=== PATIENT | male | born 1995 | race Two or more races ===

== ENCOUNTER 2017-08-03 05:35 | Inpatient (IN) | payer OTHER ==
[2017-08-03] VITALS (14 sets, daily range): BP systolic 117–138; BP diastolic 51–87
[~2017-08-03] VITALS: Ht 167.6 cm; Wt 65.8 kg
[2017-08-03] MEDS ORDERED: LR 1000ml 1,000 ML IVLG SCH (06:22)
[2017-08-03] MEDS ORDERED: Atropine Inj 1mg/10ml Syr IV PRN (06:30)
[2017-08-03] MEDS ORDERED: DiphenhydrAMINE 50mg/ml Inj IVP PRN (06:30)
[2017-08-03] MEDS ORDERED: Hydromorphone 0.5mg/0.5ml inj IVP PRN (06:30)
[2017-08-03] MEDS ORDERED: Acetaminophen (Non formulary) 100 ML IV ONE (06:30)
[2017-08-03] MEDS ORDERED: fentaNYL 100 mcg/2 mL IV PRN (06:30)
[2017-08-03] MEDS ORDERED: Ketorolac 30mg Inj IV PRN (06:30)
[2017-08-03] MEDS ORDERED: HYDROcodone/Acetamin 7.5/325 tab ORAL PRN (06:30)
[2017-08-03] MEDS ORDERED: LORazepam Inj 2mg/ml 1ml IV PRN (06:30)
[2017-08-03] MEDS ORDERED: Norco 5mg/325mg tab ORAL PRN (06:30)
[2017-08-03] MEDS ORDERED: Thrombin 5000 units TOPIC ONE (06:30)
[2017-08-03] MEDS ORDERED: Surgicel 4in x 8in TOPIC ONE (06:30)
[2017-08-03] MEDS ORDERED: Labetalol 5mg/ml 20ml vial IV PRN (06:30)
[2017-08-03] MEDS ORDERED: Midazolam 2mg/2ml Inj IVP PRN (06:30)
[2017-08-03] MEDS ORDERED: oxyCODONE HCL/Acetaminophen 5/325mg ORAL PRN (06:30)
[2017-08-03] MEDS ORDERED: Ketorolac 60mg Inj IV PRN (06:30)
[2017-08-03] MEDS ORDERED: Vancomycin 1gm inj IVPB ONE (06:31)
[2017-08-03] MEDS ORDERED: Lidocaine 1% Plain 30 ml INJ ONE ×2 (06:31→07:00)
[2017-08-03] MEDS ORDERED: Ropivacaine 5mg/ml Vial 30ml INJ ONE (06:31)
[2017-08-03] MEDS ORDERED: Lidocaine 1% 10mg/ml/EPI 0.01mg/ml 50ml INJ ONE (06:32)
[2017-08-03] MEDS ORDERED: Bacitracin 50000 Units Vial ONE (06:32)
[2017-08-03] MEDS ORDERED: HYDROmorphone 1mg/ml Carpuject SUBQ PRN (06:45)
[2017-08-03] MEDS ORDERED: Chloraseptic Spray 20mL Bottle ORAL PRN (06:45)
[2017-08-03] MEDS ORDERED: oxyCODONE 5mg IR tab ORAL PRN (06:45)
--- NOTE | 2017-08-03 06:58 | Anethesia Preoperative Eval ---
Anesthesia Pre-op PMH/ROS General Date of Evaluation: Aug 03, 2017 Time of Evaluation: 07:11 Anesthesiologist: Leyda ASA Score: ASA 1 Mallampati Score Class I : Soft palate, uvula, fauces, pillars visible Class II: Soft palate, uvula, fauces visible Class III: Soft palate, base of uvula visible Class IV: Only hard plate visible Mallampati Classification: Class I Surgeon: Howard Diagnosis: Back Pain Surgical Procedure: ALIF L5-S1, PSF L5-S1 Anesthesia History: none Family History: no anesthesia problems Allergies: Coded Allergies: No Known Allergies (Unverified , 08/02/17) Medications: see eMAR Past Medical History Gastrointestinal/Genitourinary: Reports: other - Hemmorhoids Anesthesia Pre-op Phys. Exam Physician Exam Last Vital Signs Date Time Temp Pulse Resp B/P (MAP) Pulse Ox O2 Delivery O2 Flow Rate FiO2 08/03/17 06:45 98.7 61 20 123/52 97 Room Air Constitutional: NAD Neurologic: CN 2-12 intact Cardiovascular: RRR Respiratory: CTA Gastrointestinal: S/NT/ND Airway Exam Mallampati Score: Class I MO: full ROM: full Teeth: intact Anesthesia Pre-op A/P Risk Assessment & Plan Assessment: ASA 1 Plan: GA, BIS, GlideScope Status Change Before Surgery: No Pre-Antibiotics Dru Grams Ancef IV Given Within 1 Hr of Incision: Yes Time Given: 07:31 Ezequiel Crabtree MD Aug 03, 2017 06:58
--- NOTE | 2017-08-03 06:59 | Immediate Post-Op Evaluation ---
Immediate Post-Op Evalulation Immediate Post-Op Evalulation Procedure: ALIF L5-S1, PSF L5-S1 Date of Evaluation: Aug 03, 2017 Time of Evaluation: 11:57 IV Fluids: 1500 LR Blood Products: 0 Estimated Blood Loss: 75 Urinary Output: 600 Blood Pressure Systolic: 117 Blood Pressure Diastolic: 71 Pulse Rate: 83 Respiratory Rate: 16 O2 Sat by Pulse Oximetry: 100 Temperature (Fahrenheit): 97.2 Pain Score (1-10): 3 Nausea: No Vomiting: No Complications 0 Patient Status: awake, reacts, patent, extubated, none Hydration Status: adequate Dru Grams Ancef IV Given Within 1 Hr of Incision: Yes Time Given: 07:31 Ezequiel Crabtree MD Aug 03, 2017 06:59
[2017-08-03] MEDS ORDERED: Glycopyrrolate 0.2mg/ml 1ml Vial ONE (07:00)
[2017-08-03] MEDS ORDERED: Zemuron 50mg/5ml Inj IV ONE (07:00)
[2017-08-03] MEDS ORDERED: HYDROcodone/Acetamin 10/325 tab ORAL PRN (07:00)
[2017-08-03] MEDS ORDERED: Lidocaine 1% MPF 10mg/ml 5ml ONE (07:00)
[2017-08-03] MEDS ORDERED: LR 1000ml ONE (07:00)
[2017-08-03] MEDS ORDERED: ceFAZolin sod 1 GM in D5W 55 ML IVPB ONE (07:00)
[2017-08-03] MEDS ORDERED: fentaNYL 100 mcg/2 mL IV ONE (07:00)
[2017-08-03] MEDS ORDERED: NS Irrig 1000ml ONE (07:00)
[2017-08-03] MEDS ORDERED: Sterile Water Irrig 1000ml IRRIG ONE (07:00)
[2017-08-03] MEDS ORDERED: Dexamethasone 20mg/5ml IVP ONE (07:00)
[2017-08-03] MEDS ORDERED: Propofol 1,000mg/ 100ml btl IV ONE (07:00)
[2017-08-03] MEDS ORDERED: Labetalol 5mg/ml 20ml vial IV ONE (07:00)
--- NOTE | 2017-08-03 07:10 | Pre-Procedure Note/Attestation ---
Pre-Procedure Note/Attestation Complete Prior to Procedure Planned Procedure: not applicable Procedure Narrative: L5-S1 ALIF, posterior pedicle screw instrumentation Indications for Procedure Pre-Operative Diagnosis: Post Trauma discogenic back pain Attestation I attest that I discussed the nature of the procedure; its benefits; risks and complications; and alternatives (and the risks and benefits of such alternatives ), prior to the procedure, with the patient (or the patient's legal product support representative). I attest that, if there was a reasonable possibility of needing a blood transfusion, the patient (or the patient's legal product support representative) was given the [facility] standardized written summary, pursuant to the [place] Blood Safety Act ([place] Health and Safety Code # 1645, as amended). I attest that I re-evaluated the patient just prior to the surgery and that there has been no change in the patient's H&P, except as documented below: CICI HARMAN Aug 03, 2017 07:10
[2017-08-03] MEDS ORDERED: Heparin 5000 units/ml inj ONE (07:21)
[2017-08-03] MEDS ORDERED: Rate Change PCA 1 Each MISC PRN (09:00)
[2017-08-03] MEDS ORDERED: Docusate 100mg/10ml Liq NG SCH (09:00)
--- NOTE | 2017-08-03 11:19 | Brief Operative Note ---
Immediate Post Operative Note Operative Note Pre-op Diagnosis: Post Trauma discogenic back pain Procedure: ALIF L5-S1, Internal Fixation, Correction deformity Fusion BMP Posterior Pedicle Screw L5, S1 SSEP Xray Magnification Local Post-op Diagnosis: same as pre-op Findings: consistent w/pre-op dx studies Surgeon: Howard Akers anteriorHoward [place] Supervisor: Dane baez Anesthesiologist: Leyda SINGH Anesthesia: general Specimen: none Complications: none Condition: stable Fluids: anesthesia Estimated Blood Loss: minimal Implant(s) used?: Yes CICI HARMAN Aug 03, 2017 11:19
[2017-08-03] MEDS: PCA HYDROmorphone 1mg/ml 30 ML IV PRN (12:20)
[2017-08-03] MEDS: D5 1/2NS 1,000 ML IV SCH ×2 (14:18→22:05)
[2017-08-03] MEDS: Dronabinol 2.5mg Cap ORAL SCH ×2 (14:18→22:04)
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
--- NOTE | 2017-08-03 15:33 | Operative Note - Dictated ---
DATE OF OPERATION: 08/03/2017 VASCULAR SURGEON: Harish Akers M.D. SPINE SURGEON: Byron Lawrence M.D. PREOPERATIVE DIAGNOSIS: Degenerative disc disease. POSTOPERATIVE DIAGNOSIS: Degenerative disc disease. PROCEDURE: Anterior retroperitoneal exposure of L5-S1 vertebral interspace. INDICATIONS: The patient is a very pleasant gentleman, who is seen in my office prior to surgery. He was scheduled for anterior spine surgery at L5-S1. There is no prior anterior abdominal surgery, no history of deep venous thrombosis, and no history of bleeding complications. He was carefully discussed the risks of vascular surgery, possibility of vascular injury, possible need for blood transfusion, and deep venous thrombosis were also discussed. We also had discussion with a very low rate of retrograde ejaculation after spine surgery. He understands these risks and does wish to proceed. DESCRIPTION OF FINDINGS: A low vertical incision was used. A left retroperitoneal approach was used. There was no peritoneal or ureteral violation. There is no vascular injury. Exposure of L5-S1 was obtained below the iliac bifurcation and the Omni retractor was used for retraction. Fluoroscopy was also used to confirm the level prior to instrumentation. DESCRIPTION OF PROCEDURE: The patient was taken to the operating room. General anesthesia was used. IV antibiotics were given. The patient's abdomen was prepped and draped. Appropriate time-out for procedure taken. A vertical midline incision made infraumbilically. The anterior fascia was incised longitudinally midline. A plane identified posterior to the left rectus abdominis developed posterolaterally to the patient's left. The retroperitoneal space entered below the arcuate line. The peritoneum and ureter are mobilized towards the patient's right exposing the left common iliac artery and vein. The dissection was carried to the undersurface of the left common iliac vein and middle sacral artery and vein were ligated with vascular clips and divided. This allowed us to retract the left iliac vessels superiorly and laterally exposing the anterior surface of L5-S1. There is very minimal use of electrocautery to decrease the risk of underlying nerve injury. At this time, fluoroscopy was used to confirm the appropriate level and instrumentation was performed at L5-S1 as dictated separately. On completion, the retractor was gently removed. The peritoneum and ureter were intact. The iliac vessels were intact. The anterior fascia was then closed with #1 PDS in a running fashion. The skin and subcutaneous tissue were closed with 3-0 Vicryl and 4-0 Monocryl in a running subcuticular closure technique. Blood loss was less than 50 mL. Complications none. Harish Akers M.D. DR: RICO JOB#: [id number] CC:
[2017-08-03] MEDS: ceFAZolin sod 1 GM in D5W 55 ML IV SCH ×2 (15:44→22:52)
[2017-08-03] MEDS ORDERED: PCA Education Pamphlet MISC ONE (16:00)
--- NOTE | 2017-08-03 18:42 | Cardiology Progress Note ---
Assessment/Plan Assessment/Plan discogenic pain post traumatic hs of recetn vasovaglsycnoep relate to pehlbotomy ivf dvt ppx pneumoatic stocking observe for bowel fucntion recovery once abl eot ambulate adn have bm an able to eat will go home pain managemtn per pain service orthosttic vital fall precaution initially [id number] Objective Last 24 Hour Vital Signs Date Time Temp Pulse Resp B/P (MAP) Pulse Ox O2 Delivery O2 Flow Rate FiO2 08/03/17 16:00 20 08/03/17 14:35 98.1 87 20 124/63 97 08/03/17 14:00 20 08/03/17 13:46 18 08/03/17 13:45 97.8 89 20 129/73 98 08/03/17 13:30 20 08/03/17 13:30 20 08/03/17 13:00 16 08/03/17 13:00 97.6 08/03/17 13:00 97.6 08/03/17 13:00 97.6 81 16 124/67 100 Nasal Cannula 3.0 08/03/17 12:50 74 15 123/69 100 Nasal Cannula 3.0 08/03/17 12:45 17 08/03/17 12:40 92 18 124/65 100 Nasal Cannula 3.0 08/03/17 12:30 74 16 119/66 100 Nasal Cannula 3.0 08/03/17 12:30 16 08/03/17 12:20 86 20 129/68 100 Nasal Cannula 3.0 08/03/17 12:20 18 08/03/17 12:10 86 21 127/76 100 Nasal Cannula 3.0 08/03/17 12:00 88 19 138/87 100 Simple Mask 6.0 08/03/17 11:55 84 20 131/78 100 Simple Mask 6.0 08/03/17 11:50 78 18 120/75 99 Simple Mask 6.0 08/03/17 11:48 83 16 100 08/03/17 11:46 97.2 83 19 117/71 99 Simple Mask 6.0 08/03/17 06:45 98.7 61 20 123/52 97 Room Air GRICELDA AL Aug 03, 2017 18:42
--- NOTE | 2017-08-03 18:43 | 48 Hour Post Anesthesia Eval ---
Post Anesthesia Evaluation Procedure: ALIF L5-S1, PSF L5-S1 Date of Evaluation: Aug 05, 2017 Time of Evaluation: 09:00 Blood Pressure Systolic: 120 0: 80 Pulse Rate: 56 Respiratory Rate: 18 O2 Sat by Pulse Oximetry: 99 Airway: patent Nausea: No Vomiting: No Hydration Status: adequate Mental Status/LOC: patient returned to baseline Post-Anesthesia Complications: none Follow-up care needed: patient intructions given Bassam Christopher M.D. Aug 03, 2017 18:43
[2017-08-03] MEDS: PCA shift volume MISC SCH (19:00)
[2017-08-03] MEDS: Docusate 100mg cap ORAL SCH (19:09)
--- NOTE | 2017-08-03 21:15 | Operative Note - Dictated ---
DATE OF OPERATION: 08/03/2017 ADMITTING/PREOPERATIVE DIAGNOSIS: Posttraumatic discogenic back pain, L5-S1. POSTOPERATIVE DIAGNOSIS: Posttraumatic discogenic back pain, L5-S1. OPERATIVE PROCEDURE: Anterior interbody reconstruction, fusion correction deformity with internal fixation L5-S1, placement bone morphogenic protein fusion. Intraoperative fluoroscopy interpreted by surgeons. SSEP monitoring. High-powered dissection. Anterior fusion. CO-SURGEON: Dr. Akers, Vascular Surgery. Dr. Lawrence, as assist to vascular surgery. Please see separate dictation, Dr. Akers, for approach and closure for anterior surgery. Posterior surgery: Assist, SAEED Chase. SURGEON: Byron Lawrence, PhD, M.D. PROCEDURE: Bilateral pedicle screw instrumentation, L5-S1. Intraoperative fluoroscopy interpreted by surgeons. SSEP monitoring. High-powered microscopic magnification dissection. Local anesthetic applied by surgeon. ANESTHESIA: General with intubation, Dr. Crabtree. ESTIMATED BLOOD LOSS: 50 mL. COMPLICATIONS: None. POSTOPERATIVE CONDITION: Good/stable. PROCEDURE IN DETAIL: The patient was brought to the operating room and laid in the supine position. General anesthesia intubation was induced. Intravenous antibiotics, intravenous Decadron were administered 30 minutes prior to incision time. Anterior abdomen was sterilely prepped draped free in usual sterile fashion. A longitudinal anterior incision was sharply made through dermis and epidermis. Please see separate dictation, Dr. Akers, for approach exposure and closure. Needle was placed at the midline between the L5 and S1 vertebral bodies in a cross-table and AP radiographs were obtained under sterile conditions, interpreted by surgeons for decision of level and midline placement L5-S1. Level was marked. Needle removed. Annulotomy was performed under high-power magnification followed with diskectomy through the posterior longitudinal ligament. Endplate denuding of cartilaginous end caps to bleeding bone was accomplished. Interpositional grafting with appropriate lordotic titanium/peek cage was obtained with internal fixation with the cage containing bone morphogenic protein placed for fusion. Alignment excellent. Fluoroscopic guidance determination/confirmation. After full closure and placement of sterile bandage, the patient was carefully turned to the prone position onto the new operating table. All instruments used on the anterior approach were removed. New operating table brought in. All new instruments opened. Lumbodorsal spine was sterilely prepped and draped free in usual sterile fashion. A longitudinal midline incision was sharply placed at the dermis and epidermis over the appropriate intervals. Electrocautery dissection was carried through the subcutaneous tissue to the level of the lumbodorsal fascia, was incised right and left of midline over the respective intervals. Identification was undertaken of the pars interarticularis and pedicle positions with fluoroscopic guidance with markers in place. Sequential probing of the pedicles were undertaken followed with depth determination of fluoroscopic guidance of screw length tapping followed with physical determination of cortical wall integrity. SSEP monitoring stable. Screws placed bilateral L5 and bilateral S1. Prep under operative procedure, bilateral posterior facet fusions L5-S1. Facet back down below facet articulations were excised, Midas Sunday bur dissection with allograft fusion. Pedicle screw instrumentation was connected after electrical stimulation to 5 milliamps negative at bilateral L5 and bilateral S1. Appropriate etienne length clamped into position and locked. Irrigation with antibiotic-containing saline. A 1 gram of vancomycin powder applied deep to the lumbodorsal fascia. Lumbodorsal fascia reapproximated with 0 Vicryl suture material. Subcutaneous tissue reapproximated with inverted interrupted sutures. Dermis and epidermis reapproximated with running subcuticular suture. Surgical strips applied followed with Dermabond glue. After Dermabond glue had dried, a sterile bandage was applied and maintained in place with tape. Of note, is local anesthetic 1% lidocaine was applied in the subcutaneous interval bilateral lateral aspects of the wound as local anesthetic. The patient was carefully turned from the prone to supine position on the transport bed where he was awakened and extubated in the operating room, and transported to postoperative recovery in good stable condition. Byron Lawrence M.D. DR: SHANTE JOB#: [id number] CC:
[2017-08-04] VITALS: BP 115/54
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
[2017-08-04 04:00] VITALS: BP 114/53
[2017-08-04] MEDS: Dronabinol 2.5mg Cap ORAL SCH ×3 (05:51→21:24)
[2017-08-04] MEDS: D5 1/2NS 1,000 ML IV SCH ×3 (05:52→22:23)
[2017-08-04] MEDS: ceFAZolin sod 1 GM in D5W 55 ML IV SCH (06:19)
[2017-08-04] MEDS: PCA shift volume MISC SCH ×2 (07:17→19:00)
[2017-08-04 08:16] VITALS: BP 112/61
[2017-08-04] MEDS: Docusate 100mg cap ORAL SCH ×2 (08:16→18:00)
--- NOTE | 2017-08-04 09:57 | Diagnostic Imaging Report ---
Indication: Reason For Exam: PAIN Technique: XRAY [employer] study performed by Dr. Lawrence. 3 images provided. Fluoroscopy dose: Fluoroscopy time 33.3 seconds. Dose: [id number] mGym2 Comparison: None. Findings: Intraoperative limited lateral views of the lumbar spine demonstrate localization of what appears to be the L5-S1 disc. There is subsequent placement of hardware in the L5-S1 disc as well as pedicle screws and posterior fixation bars and L5 and S1. Impression: Surgical fusion of L5 and S1.
[2017-08-04 12:00] VITALS: BP 136/68
[2017-08-04] MEDS: PCA HYDROmorphone 1mg/ml 30 ML IV PRN (15:15)
[2017-08-04 16:00] VITALS: BP 137/64
[2017-08-04] MEDS ORDERED: D5 1/2NS 1000ml IV ONE (16:51)
--- NOTE | 2017-08-04 17:45 | Progress Note ---
DATE: 08/04/2017 ACUTE PAIN MANAGEMENT PHYSICIAN PROGRESS NOTE MEDICATIONS: Medication administration record reviewed. Medications include Fioricet, Mylanta, Soma, Catapres, IV fluids, Benadryl, Colace, Marinol, Marydel, Dilaudid STATION REPAIRER, subcutaneous Dilaudid, Narcan, Zofran, oxycodone, Protonix, and Chloraseptic. LABORATORY STUDIES: No interval laboratory studies. OBJECTIVE: VITAL SIGNS: Pain level 5/10 on the visual analog pain scale. Afebrile, pulse 60, respirations 20, blood pressure 112/61, and oxygen saturation 98% on room air. I spent over 60 minutes in consultation today. I saw the patient at bedside with the patient's girlfriend. I discussed the case with the nurse RN, 00:49_ and the physical therapist. The patient is neurologically intact, moving all extremities x4. A 5/5 dorsiflexion, 5/5 plantar flexion of bilateral lower extremity. The patient denies any shortness of breath or chest pain. After his anterior lumbar interbody fusion procedure, the patient is not passing positive flatus at this time. He does have stomach rumbling, but no burping either. The patient will continue on ice chips and medications only by mouth until we see better evidence of moravian of bowel function, noted with positive flatus. The Arevalo catheter remains in place. I demonstrated proper usage of incentive spirometer at the bedside to encourage good pulmonary toilet. I streamlined the patient's medication list to reduce the risk of medication administration errors. The patient is using his Dilaudid STATION REPAIRER with good efficacy. The scheduled q.8 h. dosing of Marinol was working well for baseline analgesia without any adverse side effects. The patient denies any headache symptoms. I did recommend the patient to consider trialing the oral analgesics including Marydel and oxycodone to help transition him off the STATION REPAIRER unit, which I would like to stop tomorrow. I will continue the patient on Protonix for GI ulcer prophylaxis. Soma and Fioricet will remain available for spasm and headache complaints respectively p.r.n. Overall, the patient is progressing on-schedule with his recovery after his extensive lumbar spine fusion surgery. We will see how the patient progresses with physical therapy as well as see how the patient recovers with bowel function. I did recommend continued use of incentive spirometer for good pulmonary toilet. The patient will continue with sequential compression pneumatic devices on bilateral lower extremity calves for DVT prophylaxis. Bassam Elizalde M.D. DR: TOM JOB#: [id number] CC:
--- NOTE | 2017-08-04 19:49 | Cardiology Progress Note ---
Assessment/Plan Problem List: (1) Fusion of spine of lumbar region Status: stable, unchanged Status Narrative Hemodynamically stable, s/p LS spine surgery , post op d1. He had syncope preop in the setting of blood draw - likely vasovagal. Assessment/Plan Follow orthostatic VS. IV fluids Analgesics, post op management per Dr. Lawrence Subjective ROS Limited/Unobtainable: No Subjective Mr. Bui c/o back/abd pain. No further syncope. No dizziness Events noted Objective Last 24 Hour Vital Signs Date Time Temp Pulse Resp B/P (MAP) Pulse Ox O2 Delivery O2 Flow Rate FiO2 08/04/17 16:00 18 08/04/17 16:00 98.7 60 20 137/64 100 Room Air 08/04/17 12:00 62 08/04/17 12:00 97.4 62 20 136/68 97 Room Air 08/04/17 12:00 19 08/04/17 08:16 98.4 60 20 112/61 98 08/04/17 08:00 20 08/04/17 04:00 58 55 08/04/17 04:00 20 08/04/17 04:00 98.2 58 20 114/53 98 08/04/17 00:00 98.2 67 20 115/54 98 08/04/17 00:00 20 08/03/17 20:00 98.5 72 20 120/51 96 General Appearance: WD/WN, alert, mild distress EENT: PERRL/EOMI Neck: supple, no JVD Rhythm: NSR Cardiovascular: normal rate, regular rhythm, no gallop/murmur Respiratory/Chest: lungs clear, other - clear anteriorly Abdomen: soft, absent bowel sounds, other - anterior incision clean, covered w / dry dsg Extremities: non-tender, no swelling Intake and Output 08/03/17 08/04/17 19:00 07:00 Intake Total 1950 ml 1055 ml Output Total 3000 ml 1400 ml Balance -1050 ml -345 ml Intake IV Total 1950 ml 1055 ml Output Urine Total 2250 ml 1400 ml Estimated Blood Loss 750 ml Microbiology Date/Time Source Procedure Growth Status 08/03/17 05:30 Nasal Nares MRSA Culture - Final NO METHICILLIN RESISTANT STAPH AUREUS... Complete EAMON SORIA Aug 04, 2017 19:49
[2017-08-04 20:25] VITALS: BP 121/72
[2017-08-05] VITALS (8 sets, daily range): BP systolic 102–132; BP diastolic 59–72
[2017-08-05] MEDS: Dronabinol 2.5mg Cap ORAL SCH ×3 (05:13→21:00)
[2017-08-05] MEDS: D5 1/2NS 1,000 ML IV SCH ×2 (06:28→07:53)
[2017-08-05] MEDS ORDERED: Hydromorphone 0.5mg/0.5ml inj IVP PRN (07:30)
[2017-08-05] MEDS: Docusate 100mg cap ORAL SCH ×2 (08:27→17:15)
--- NOTE | 2017-08-05 14:48 | Cardiology Progress Note ---
Assessment/Plan Problem List: (1) Fusion of spine of lumbar region Status: doing well, stable Status Narrative Hemodynamically stable, s/p LS spine surgery , post op d2. He had syncope preop in the setting of blood draw - likely vasovagal. He has not had further symptoms. Abd pain/ incisional pain improving, and he is now on oral analgesics Assessment/Plan Follow orthostatic VS. Po fluids/ advance diet. Analgesics, post op management per Dr. Lawrence Will check labs in am. ? dc home in next 1-2 d if remains stable. Subjective ROS Limited/Unobtainable: No Subjective Mr. Bui has no c/o. Incisional pain has improved. Objective Last 24 Hour Vital Signs Date Time Temp Pulse Resp B/P (MAP) Pulse Ox O2 Delivery O2 Flow Rate FiO2 08/05/17 12:11 99.2 60 20 127/67 98 Room Air 08/05/17 10:41 98.8 08/05/17 08:00 98.8 63 18 132/66 94 Room Air 08/05/17 06:34 83 102/68 08/05/17 06:32 69 122/69 08/05/17 06:30 64 119/72 08/05/17 04:00 18 08/05/17 04:00 99.8 73 17 109/59 98 08/05/17 00:00 17 08/04/17 20:30 18 08/04/17 20:25 99.6 73 18 121/72 98 08/04/17 16:00 18 08/04/17 16:00 98.7 60 20 137/64 100 Room Air General Appearance: WD/WN, no apparent distress, alert EENT: PERRL/EOMI Neck: non-tender, no JVD Rhythm: NSR Cardiovascular: normal peripheral pulses, normal rate, regular rhythm Respiratory/Chest: lungs clear, other - clear anteriorly Abdomen: normal bowel sounds, non tender, soft, other - anterior incision covered w/ dry dsg Extremities: non-tender, no swelling Intake and Output 08/04/17 08/05/17 19:00 07:00 Intake Total 67.5 ml Balance 67.5 ml IV Total 67.5 ml Microbiology Date/Time Source Procedure Growth Status 08/03/17 05:30 Nasal Nares MRSA Culture - Final NO METHICILLIN RESISTANT STAPH AUREUS... Complete EAMON SORIA Aug 05, 2017 14:48
--- NOTE | 2017-08-05 15:00 | Progress Note ---
DATE: 08/05/2017 ACUTE PAIN MANAGEMENT PHYSICIAN PROGRESS NOTE MEDICATIONS: Medication administration record reviewed. Medications include IV fluids, Colace, Protonix, and Marinol. P.r.n. medications include Soma, Benadryl, Mylanta, Zofran, Chloraseptic spray, Catapres, Manson, and Dilaudid. LABORATORY STUDIES: No interval laboratory studies. OBJECTIVE: VITAL SIGNS: Pain level is 5/10 on the visual analog pain scale. T-max and T-current is 99.8, pulse 73, respirations 18, blood pressure 109/59, and oxygen saturation WNL on room air. I spent over 60 minutes in consultation today. I saw the patient at the bedside after discussion with the nurse RN, Yesika. The Arevalo catheter was just removed and we will wait for the patient to void urine on his own. Yesterday, the patient did ambulate out of bed with physical therapy several times. With generous usage of the ACCOUNTANT SUPERVISOR and has scheduled Marinol, the patient was able to move in and out of bed with relative ease. The patient's usage of the ACCOUNTANT SUPERVISOR Dilaudid unit overnight continued to decrease and I decided to discontinue the ACCOUNTANT SUPERVISOR at this time. I will continue p.r.n. doses of breakthrough Dilaudid, which I have changed to 0.5 mg intravenously every three hours p.r.n. for severe pain. The patient has a supply of Manson tablets already at home and I would recommend Manson 10/325 tablets to be used p.r.n. every three hours p.r.n. for mild pain. We will continue his q. 8 hours scheduled Marinol, which has been working very well for anxiolysis as well as for baseline analgesia. After his anterior approach lumbar spine fusion surgery, there still has no positive flatus. We will continue him on ice chips and medications only per mouth. He does have positive bowel sounds and he is starting to burp. Once he begins positive flatus, we will contact the surgeon, Dr. Lawrence to advance the patient's diet as a limiting factor for the patient's discharge, his improved bowel function, and a bowel movement. The patient does have a low-grade fever this morning. He is 22 years old and otherwise healthy. I did encourage increased usage of incentive spirometer as he likely has postoperative atelectasis contributing to his low-grade fever. The patient is pleasant, feels that he is improving in his strength, and is pleased with his progress. Bassam Elizalde M.D. DR: TOM JOB#: [id number] MEHNAZ
[2017-08-06 00:03] VITALS: BP 110/65
[2017-08-06 04:12] VITALS: BP 117/58
[2017-08-06] MEDS: Dronabinol 2.5mg Cap ORAL SCH ×2 (06:04→14:00)
[2017-08-06 07:32] LABS: ANION GAP 6 mmol/L (5-15); BASOPHILS % (AUTO) 0.6 % (0.0-2.0); BLOOD UREA NITROGEN 9 mg/dL (7-18); CALCIUM 9.4 MG/DL (8.5-10.1); CARBON DIOXIDE 32 MMOL/L (21-32); CHLORIDE 101 MMOL/L (98-107); CREATININE 0.9 MG/DL (0.55-1.30); EOSINOPHILS % (AUTO) 1.2 % (0.0-3.0); HEMATOCRIT 45.4 % (42.0-52.0); HEMOGLOBIN 15.5 G/DL (14.2-18.0); LYMPHOCYTES % (AUTO) 14.3 % (20.0-45.0); MEAN CORPUSCULAR VOLUME 86 FL (80-99); MONOCYTES % (AUTO) 9.7 % (1.0-10.0); NEUTROPHILS % (AUTO) 74.1 % (45.0-75.0); PLATELET COUNT 226 K/UL (150-450); RED BLOOD COUNT 5.25 M/UL (4.70-6.10); RED CELL DISTRIBUTION WIDTH 10.7 % (11.6-14.8); SODIUM 138 MMOL/L (136-145); WHITE BLOOD COUNT 11.9 K/UL (4.8-10.8)
[2017-08-06 08:00] VITALS: BP 101/51
--- NOTE | 2017-08-06 08:45 | Progress Note ---
DATE: 08/06/2017 ACUTE PAIN MANAGEMENT PHYSICIAN PROGRESS NOTE OBJECTIVE: VITAL SIGNS: Afebrile, pulse 77, respirations 18, blood pressure 110/65, and oxygen saturation 96% on room air. LABORATORY STUDIES: No interval laboratory studies. MEDICATIONS: Medication administration record reviewed. Medications include Colace, Protonix, and Marinol. P.r.n. medications include Soma, Benadryl, Mylanta, Zofran, Chloraseptic spray, Catapres, [place], and Dilaudid. I spent over 60 minutes in consultation today. I saw the patient at the bedside. I discussed the case with the overnight nurse, RN, Yesika. Since my last interval visit, the patient did start passing positive flatus. The surgeon was notified and did advance the patient's diet as tolerated. Currently, full liquids have been tolerated without any emesis problems. We will continue to advance the patient's diet as tolerated. He has not yet had a bowel movement. I did encourage continued ambulation to help with continued religion of bowel function. The patient denies any shortness of breath or chest pain. He is breathing comfortably on room air. I discontinued the PIPE CUTTER Dilaudid unit yesterday, and the patient has been tolerating his pain levels on the scheduled Marinol with intermittent and infrequent doses of the hydrocodone. Breakthrough IV Dilaudid remains available as a breakthrough analgesic; however, this dosing has not been required so far. The patient does have a good supply of hydrocodone already at home. Aggressive incentive spirometer usage has been encouraged and he has been afebrile for the past 24 hours. He has been increasing his ambulation aggressively. I would expect that as soon as the patient has a bowel movement. He will be discharged home by the surgical team, with surgical follow up in Dr. Lawrence office in one to two weeks. Bassam Elizalde M.D. DR: TOM JOB#: [id number] CC:
[2017-08-06] MEDS: Docusate 100mg cap ORAL SCH (09:00)
[2017-08-06 12:00] VITALS: BP 113/62
[2017-08-06] MEDS ORDERED: D5 1/2NS 1000ml IV ONE (14:39)
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
== END 2017-08-06 14:40 | disposition home or self-care (01) | DRG 460 ==
LOC: SDSOVERFLO 05:35 → 3E 13:30
PROC: 3E0U0GB Introduction of Recombinant Bone Morphogenetic Protein into Joints, Open Approach (ICD-10-PCS; principal; 2017-08-03 07:00)
PROC: 0SG30A0 Fusion of Lumbosacral Joint with Interbody Fusion Device, Anterior Approach, Anterior Column, Open Approach (ICD-10-PCS; principal; 2017-08-03 07:00)
PROC: 4A11X4G Monitoring of Peripheral Nervous Electrical Activity, Intraoperative, External Approach (ICD-10-PCS; principal; 2017-08-03 07:00)
DX: M51.86 Other intervertebral disc disorders, lumbar region (principal); F12.90 Cannabis use, unspecified, uncomplicated; G89.18 Other acute postprocedural pain; V89.2XXS Person injured in unspecified motor-vehicle accident, traffic, sequela
CPT/HCPCS: 36415; 72020; 76001; 80048; 85025; 86850; 86900; 86901; 87081; 94003; 94150; J2405